=== PATIENT | female | born 1985 | race Caucasian/White ===

== ENCOUNTER → 2020-07-05 10:31 | Outpatient (CLI) | payer OTHER, SELFPAY ==
--- NOTE | 2020-07-05 10:33 | DI.US.S_ITS ---
PROCEDURE: US OB >= 14 WEEKS FETUS INDICATIONS: ANATOMY OUTSIDE/PRIOR DATING DATA: Last menstrual period (LMP): Unknown. LMP-based estimated date of delivery (LAURA): Not applicable . First dating scan (date and location): July 05, 2020 . Estimated date of delivery (LAURA) from first dating scan: November 26, 2020 . TECHNIQUE: Real-time scanning was performed of the fetus, with image documentation and biometric measurements. Endovaginal scanning: Not performed COMPARISON: None. FINDINGS: General: A single living intrauterine gestation is present. Presentation: Vertex. Placenta: Placental position is posterior , without previa. Amniotic fluid index: 14.4 cm, normal range is 5-24 cm. heart rate: 152 beats per minute. Maternal cervical canal: 3.0 cm long. Normal lower limit is 2.5 cm. biometrics: Biparietal diameter: 4.7 cm, correlating with 20 weeks and 1 day Head circumference: 16.8 cm, correlating with 19 weeks and 3 days Abdominal circumference: 13.6 cm, correlating with 19 weeks and 0 days Femur length: 2.9 cm, correlating with 19 weeks and 0 days Estimated gestational age from initial scan: not applicable. Composite gestational age from present scan: 19 weeks and 3 days Estimated weight and percentile: 274 g Measurement variability for biometric dating: +/- 7 days from 14 weeks to 15 weeks 6 days gestation, +/- 10 days from 16 weeks to 21 weeks 6 days gestation, +/- 2 weeks from 22 weeks to 27 weeks 6 days gestation, +/- 3 weeks for 28 weeks gestation or later. weight reference: 4500 g or EFW >90/95% is considered macrosomia or large for gestational age. EFW <10% is small for gestational age. EFW 5% or less is considered intra-uterine growth restriction. Anatomic survey: Neuro: Ventricles are non-dilated at less than 10 mm. Cisterna magna is normal at 3-11 mm. Cerebellum is normal in size and morphology. Nuchal skin fold: Normal at less than 6 mm between 14-21 weeks gestational age. Face: Nose and lips, facial profile are normal. Spine: The sacral spine tip is not well visualized. Remainder of the visualized spine is unremarkable. Heart: 4-chambered heart is present, with normal ventricular outflow tracts. Diaphragm: Diaphragm is intact. Stomach: Left-sided stomach is present. Kidneys: No hydronephrosis. Normal is less than 5 mm in 2nd trimester, less than 7 mm in 3rd trimester. Cord: 3-vessel cord. There is possible marginal cord insertion with the cord insertion site visualized approximately 1.7 cm from the placental edge. Bladder: Normal in size. Extremities: All 4 extremities identified. IMPRESSION: 1. Single living intrauterine gestation with an estimated sonographic gestational age of approximately 19 weeks and 3 days with estimated weight measuring approximately 274 g. Estimated date of delivery is approximately November 26, 2020. 2. Limited visualization of the distal tip of the sacrum otherwise unremarkable anatomic screening survey. 3. There is probable marginal cord insertion. 4. Short interval follow-up recommended to re-evaluate distal sacrum and to confirm probable marginal cord insertion. Dictated by: Sina Porter M.D. on 07/05/2020 at 16:35 Approved by: Sina Porter M.D. on 07/05/2020 at 16:52
== END ==
PROVIDERS: Referring Provider Obstetrics & Gynecology; Visit Provider Obstetrics & Gynecology
DX: Z34.82 Encounter for supervision of other normal pregnancy, second trimester (principal); Z3A.19 19 weeks gestation of pregnancy
CPT/HCPCS: 76811

== ENCOUNTER → 2020-07-16 10:46 | Outpatient (CLI) | payer OTHER, SELFPAY ==
--- NOTE | 2020-07-16 10:47 | DI.US.S_ITS ---
PROCEDURE: US OB FOLLOW UP INDICATIONS: RE-EVALUATE ANATOMY OUTSIDE/PRIOR DATING DATA: First dating scan (date and location): 07/05/2020 Estimated date of delivery (LAURA) from first dating scan: 11/26/2020 . TECHNIQUE: Real-time scanning was performed of the fetus, with image documentation and biometric measurements. Endovaginal scanning: No COMPARISON: [facility], , OB >= 14 WEEKS FETUS, 07/05/2020, 11:18. FINDINGS: General: A single living intrauterine gestation is present. Presentation: Breech. Placenta: Placental position is posterior , without previa. Amniotic fluid index: Subjectively normal. heart rate: 143 beats per minute. Maternal cervical canal: 4.8 cm long. Normal lower limit is 2.5 cm. Estimated gestational age from initial scan: 21 weeks Composite gestational age from present scan: N/a Normal appearance of the kidneys and spine. Marginal cord insertion with the placental cord insertion site 1.3 cm from the placental margin. IMPRESSION: 1. Single living IUP redemonstrated. 2. Normal appearance of the kidneys and spine. 3. Marginal placental cord insertion site. Dictated by: Keanu Mao [facility] Interpreted: Mallory Pitts MD on 07/16/2020 at 14:04 Approved by: Mallory Pitts M.D. on 07/16/2020 at 15:05
== END ==
PROVIDERS: Referring Provider Obstetrics & Gynecology; Visit Provider Obstetrics & Gynecology
DX: Z36.2 Encounter for other antenatal screening follow-up (principal); Z3A.20 20 weeks gestation of pregnancy
CPT/HCPCS: 76816

== ENCOUNTER → 2020-08-20 07:44 | Outpatient (CLI) | payer OTHER, SELFPAY ==
[2020-08-20 10:25] LABS: Hematocrit 35.7 % (36-46); Hemoglobin 12.2 g/dL (12.0-16.0)
[2020-08-20 10:39] LABS: GTT (PREG) 1 Hour PP 50gm Dose 104 mg/dL (76-139)
== END ==
PROVIDERS: Referring Provider Obstetrics & Gynecology; Visit Provider Obstetrics & Gynecology
DX: Z34.82 Encounter for supervision of other normal pregnancy, second trimester (principal); Z3A.26 26 weeks gestation of pregnancy
CPT/HCPCS: 36415; 82950; 85014; 85018

== ENCOUNTER → 2020-10-22 14:55 | Outpatient (CLI) | payer OTHER, SELFPAY ==
[2020-10-23 13:01] LABS: Strep Grp B PCR NEG for Grp B Strep
== END ==
PROVIDERS: Visit Provider Obstetrics & Gynecology
DX: Z34.83 Encounter for supervision of other normal pregnancy, third trimester (principal); Z3A.35 35 weeks gestation of pregnancy
CPT/HCPCS: 87653

== ENCOUNTER 2020-11-08 16:25 | Inpatient (IN) | payer OTHER, SELFPAY ==
--- NOTE | 2020-11-08 16:51 | P.HPOB_ITS ---
OB HPI Date/Time Date of admission: 11/08/20 Date Patient Seen: 11/08/20 Time Patient Seen: 16:52 History of Present Condition Chief complaint: observation of labor : 4 Para: 1 Estimated Date of Delivery: 11/21/20 Estimated Gestational Age (weeks): 38 Narrative: Tisha Palacios is a 35 year old @38+1 with a history of prior CS, presenting with painful contractions q3-4 since this AM. The patient reports that the contractions are accompanied by a lower abdominal sharp, ripping sensation. She denies LOF, vaginal bleeding, or decreased movement, denies GI upset or PIH complaints, and is otherwise feeling well. Her has been uncomplicated, and she transferred care from [place] at 16 weeks. 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 Indications Operative indications ( section): previous uterine surgery History of Present care: none Dating criteria: LMP confirmed by 1st trimester US Ultrasounds: normal mid trimester US Obstetrical complications: none Medical complications: none Preadmission Labs Blood type: AB (+) positive -: Antibody screen: negative, GBS status: negative, HBsAG: negative, HIV: negative, HSV 1: negative and RPR/VDLR: negative -: Chlamydia screen: not detected and Gonorrhea screen: not detected -: Rubella: immune and Varicella: immune PAP: Normal Cell-free DNA: negative, male Urine: no growth 1 hr GTT: 104 Prior (ies) History: G1: 07/23/03, 8 week IAB, [place] G2: 07/04/18, 6-7 weeks SAB, [place] G3: 05/19/19, 40+6, 8#7, M, CS Evaluation Evaluation Baseline heart rate: 130 Variability: Moderate (11-25) monitor accelerations: Present Monitor Decelerations: Late (periodic) Contraction Frequency (minutes): 4 Category of Tracing: Reactive Status: Category ll PFSH Medical History Abnormal Pap smear of cervix (~2004) AMA (advanced maternal age) multigravida 35+ Dislocation of joint of right upper extremity H/O being hospitalized (~2007) HPV (human papilloma virus) anogenital infection (~2004) Hypothyroid (~2009) Insulin resistance (~2002) Right arm fracture UTI (urinary tract infection) Surgical History History of primary section (~05/19/19) Family History Mother Hypertension Hyperlipidemia Migraine Father Insulin resistance Kidney stones Grandmother Emphysema lung Schizophrenia Grandfather Emphysema lung Chain smoker Hypertension Grandmother Insulin resistance Obese Grandfather Alcoholic Pneumonia Family/Other Schizophrenia Family/Other Obese Brother Sarcoidosis Family/Other Seizure Social History marital status: household members: spouse and children lives independently: Yes pets and animals: No education level: college (BA in [employer] and [employer] ) occupational status: unemployed (Will be working again soon) current occupational exposures/hazards: No Previous occupational history: [employer] and [employer]; Fast Food Shift Supervisor jina/sikh: [employer] special jina needs: No Smoking Status: Never smoker second hand exposure: No alcohol intake: former (pre- : social use) substance use type: does not use and marijuana (Quit : some College age use) Meds Home Medications and Allergies Home Medications Medication Instructions Recorded Confirmed Type ascorbic acid (vitamin C) 1,000 mg 500 mg PO DAILY 06/06/20 07/31/20 History tablet prenat.vits,eric,xzj-yfyi-bhekh 1 tab PO DAILY 06/06/20 07/31/20 History Allergies Allergy/AdvReac Type Severity Reaction Status Date / Time Penicillins Allergy Intermediate Rash Verified 06/06/20 10:38 Review of Systems Constitutional Constitutional: Reports system reviewed and no additional complaints, except as documented Cardiovascular Cardiovascular: Reports system reviewed and no additional complaints, except as documented Respiratory Respiratory: Reports system reviewed and no additional complaints, except as documented Gastrointestinal Gastrointestinal: Reports system reviewed and no additional complaints, except as documented Genitourinary Genitourinary: Reports system reviewed and no additional complaints, except as documented Neurologic Neurologic: Reports system reviewed and no additional complaints, except as documented Hematologic/Lymphatic Hematologic/Lymphatic: Reports system reviewed and no additional complaints, except as documented Exam Vital Signs (past 8 hours): 114/68, HR 72 Const General: cooperative, healthy appearing and comfortable Resp Effort & Inspection: normal respiratory effort Auscultation: clear to auscultation bilaterally Cardio Rate: regular rate Rhythm: regular rhythm GI Palpation: soft and No tender Extrem General: normal to inspection Assessment and Plan Assessment and Plan Assessment and Plan narrative: This patient is a 35yo P1 with a history of prior CS, presenting at 38+1 with painful contractions q2-4 throughout the day. Tracing overall reassuring, but has had periodic late decelerations. No tenderness over old incision, but given term gestation and regular painful contractions with cat 2 EFM, patient is for repeat section. CBC, T&S, and covid test pending. Patient reports mild PCN allergy with rash, for Ancef. - Admit per usual CS protocol - Last ate 6 hrs ago
[2020-11-08 17:07] LABS: Add Manual Diff / Slide Review NO; Basophils Absolute Auto 100 /uL (0-100); Basophils Percent Auto 0.6 % (0-2); Eosinophils Absolute Auto 100 /uL (0-450); Eosinophils Percent Auto 0.6 % (2-4); Hematocrit 38.2 % (36-46); Hemoglobin 13.1 g/dL (12.0-16.0); Lymphocytes Absolute Auto 2500 /uL (1100-4500); Lymphocytes Percent Auto 16.4 % (25-40); Mean Corpuscular HGB Conc 34.3 % (30-36); Mean Corpuscular Hemoglobin 31.8 PG (26-34); Mean Corpuscular Volume 92.9 fL (80-100); Monocytes Absolute Auto 1100 /uL (0-900); Monocytes Percent Auto 7.5 % (3-14); Neutrophils Absolute Auto 11400 /uL (1500-7000); Neutrophils Percent Auto 74.9 % (50-75); Platelet Count 277 X10^3/uL (150-400); Red Blood Cell Count 4.11 X10^6/uL (4.0-5.2); Red Cell Distribution Width 12.7 % (11.6-14.8); White Blood Cell Count 15.2 X10^3/uL (4.5-11.0)
[2020-11-08] MEDS: CITRIC ACID/SODIUM CITRATE 15 ML SOLUTION 30 ML PO (17:10)
--- NOTE | 2020-11-08 17:28 | PM.PREOP ---
Pre-operative Note COVID-19 COVID-19 status: Negative Result date/Date tested (Pos, Neg/Pending): 11/08/20 Interval Note History & Physical reviewed/Exam performed by Physician: Yes Changes to H&P: No
[2020-11-08 17:35] LABS: COVID19 - ADMIT (NP swab/PCR) Negative (Negative)
[2020-11-08] MEDS: LACTATED RINGERS 1,000 ML 100 ML IV ×3 (17:36→21:14)
[2020-11-08] MEDS: ACETAMINOPHEN 325 MG TABLET 975 MG PO (17:36)
--- NOTE | 2020-11-08 18:09 | SUR.OPER ---
Supine on Padded OR bed, head on pillow, safety belt at thigh, arms secured on padded arm boards at <90 degrees abduction. Bump under right buttock. Legs uncrossed with pillow under knees, gel pad to heels, tape over blanket to lower legs.
--- NOTE | 2020-11-08 18:11 | SUR.OPER ---
FHT's 160.
[2020-11-08] MEDS: CEFAZOLIN 1 GM VIAL 2 GM IV (18:12)
--- NOTE | 2020-11-08 18:19 | SUR.OPER ---
TOB live male @ 181. Placenta and cord blood x 2 to OB with OB RN
[2020-11-08 19:19] VITALS: BP 120/68; PULSE 55; RESP 14; TEMP 36.6; O2SAT 100
[2020-11-08 19:24] VITALS: BP 119/62; PULSE 62; RESP 14; O2SAT 100
--- NOTE | 2020-11-08 19:26 | P.OP_ITS ---
Operative Date/Time/Diagnoses Date of procedure: 11/08/20 Time of procedure: 19:26 Pre-op diagnosis: prior CS, labor Post-op diagnosis: same Procedure & Clinicians Procedure: repeat section Same procedure as scheduled: Yes Indications: prior section, contraction Surgeon: Laura East Can Reforming Machine Operator: Charlotte Molina Reason for Can Reforming Machine Operator: Assistance with retraction, delivery, visualization Anesthesia Type: Spinal Operative Notes Findings: male in cephalic presentation, apgars 8+9, weight 5#11 Closure Type: primary Specimen(s): cord blood Intraoperative meds administered: Ketorolac and Pitocin Applied: Catheter Estimated Blood Loss (mL): 750 Procedure in detail: EBL: 750ccs Fluids: 2L LR UOP: 900ccs clear yellow urine Findings: Male infant in cephalic presentation, Apgars 8+9, weight 5#11, normal uterus, tubes, ovaries. Thin, quite developed lower uterine segment. Moderate amount of scar tissue throughout. Procedures: The patient was taken to the operating room where spinal anesthesia was placed and found to be adequate. She was prepped and draped in the normal sterile fashion in the dorsal supine position with a leftward tilt. A Pfannenst iel skin incision was made with a scalpel and carried through to the underlying layer of fascia. The fascia was incised in the midline and the incision extended laterally with Farmer scissors. The superior aspect of this incision was grasped with Zoya clamps, elevated, and the underlying rectus muscles dissected off bluntly and with the curved Farmer scissors. Attention was then turned to the inferior aspect of this incision which, in a similar fashion, was grasped, tented up with the Zoya clamps, and the rectus muscles dissected off bluntly and with the curved Farmer scissors. The rectus muscles were then in the midline, and the peritoneum identified, tented up, and entered sharply with Metzenbaum scissors. The peritoneal incision was extended superiorly and inferiorly with good visualization of the bladder. The bladder blade was inserted and the vesicouterine peritoneum identified, grasped with pickups, and entered sharply with the Metzenbaum scissors. This incision was extended laterally, and the bladder flap created digitally. The bladder blade was then reinserted and the lower uterine segment incised in transverse fashion with the scalpel. The uterine incision was bluntly extended laterally. The bladder blade was removed, and the infant's head delivered atraumatically. After 30 seconds of delayed cord clamping, the cord was clamped and cut. The nose and mouth were suctioned as needed with a bulb syringe, and the was handed off to awaiting pediatricians. The placenta was then removed spontaneously, and the uterus was exteriorized and cleared of all clots and debris. The uterine incision was repaired with 1-0 chromic in a running, locked fashion ans a 2nd layer of the same suture was used to obtain excellent hemostasis. The uterus was returned to the abdomen, and the gutters were cleared of all clots and debris. The bladder flap was closed with 2-0 Vicryl in a running fashion, the peritoneum was closed with 3-0 Vicryl, and the fascia reapproximated with 0 Vicryl in a running fashion. The subcutaneous layer was placed with 3 0 Vicryl in an interrupted fashion and the skin was closed with 4-0 biosyn in a running fashion. The patient tolerated the procedure well. sponge lap and needle counts were correct x2. 2 g of Ancef were given at commencement of the case. The patient was taken to the recovery room in stable condition. Complications: none Baby 1: Gender: Male Presentation: vertex Position: Left Occiput Anterior Placental Delivery Description: Manual Removal Cord Vessel Description: 3 Vessels score (1 min): 8 score (5 min): 8 weight: 5 lb 11 oz Post-operative Condition: stable Disposition: PACU Aftercare: routine postop
[2020-11-08 19:29] VITALS: BP 120/69; PULSE 60; RESP 14; O2SAT 100
[2020-11-08 19:33] VITALS: BP 110/64; PULSE 68; RESP 20; TEMP 36.3; O2SAT 99
[2020-11-08 19:50] VITALS: BP 112/72; PULSE 61; RESP 18; O2SAT 98
[2020-11-09] MEDS: KETOROLAC 30 MG/ML VIAL IV ×3 (01:39→13:59)
[2020-11-09 06:32] LABS: Add Manual Diff / Slide Review NO; Basophils Absolute Auto 0 /uL (0-100); Basophils Percent Auto 0.3 % (0-2); Eosinophils Absolute Auto 100 /uL (0-450); Eosinophils Percent Auto 0.9 % (2-4); Hematocrit 32.8 % (36-46); Hemoglobin 11.1 g/dL (12.0-16.0); Lymphocytes Absolute Auto 3000 /uL (1100-4500); Lymphocytes Percent Auto 20.1 % (25-40); Mean Corpuscular HGB Conc 33.8 % (30-36); Mean Corpuscular Hemoglobin 31.5 PG (26-34); Monocytes Absolute Auto 1500 /uL (0-900); Monocytes Percent Auto 9.9 % (3-14); Neutrophils Absolute Auto 10300 /uL (1500-7000); Neutrophils Percent Auto 68.8 % (50-75); Platelet Count 189 X10^3/uL (150-400); Red Blood Cell Count 3.53 X10^6/uL (4.0-5.2); Red Cell Distribution Width 12.7 % (11.6-14.8); White Blood Cell Count 15.1 X10^3/uL (4.5-11.0)
--- NOTE | 2020-11-09 09:27 | P.PNOB_ITS ---
Subjective - OB Subjective Patient comments: no complaints, pain well controlled, tolerating diet and flatus present baby status: doing well and nursing well [place] feeding status: exclusively breast feeding Narrative: This patient is recovering well on postoperative day 1. Patient has ambulated, is passing flatus, mild to moderate lochia, good pain control on p.o. medications. Tolerating p.o., chest pain or trouble breathing. Voiding trial this morning. Baby is well. Date Patient Seen: 11/09/20 Time Patient Seen: 08:45 Exam Vital Signs (past 8 hours): 111/54, HR 78 Oxygen Delivery Method Room Air Const General: cooperative, healthy appearing and comfortable Resp Effort & Inspection: normal respiratory effort Auscultation: clear to auscultation bilaterally Cardio Rate: regular rate Rhythm: regular rhythm GI Inspection: incision (c/d/i, covered by aquacell) Palpation: soft and No tender Extrem General: normal to inspection Objective Labs Result Diagrams: 11/09/20 06:16 Labs: Laboratory Results - last 24 hr 11/08/20 11/08/20 11/08/20 16:35 16:50 16:50 WBC 15.2 H RBC 4.11 Hgb 13.1 Hct 38.2 MCV 92.9 MCH 31.8 MCHC 34.3 RDW 12.7 Plt Count 277 Neut % (Auto) 74.9 Lymph % (Auto) 16.4 L [place] % (Auto) 7.5 Eos % (Auto) 0.6 L Baso % (Auto) 0.6 Neut # (Auto) 48028 H Lymph # (Auto) 2500 [place] # (Auto) 1100 H Eos # (Auto) 100 Baso # (Auto) 100 SARS-CoV-2 (PCR) Negative Blood Type AB Positive Antibody Screen Negative 11/09/20 06:16 WBC 15.1 H RBC 3.53 L Hgb 11.1 L Hct 32.8 L MCV 93.0 MCH 31.5 MCHC 33.8 RDW 12.7 Plt Count 189 Neut % (Auto) 68.8 Lymph % (Auto) 20.1 L [place] % (Auto) 9.9 Eos % (Auto) 0.9 L Baso % (Auto) 0.3 Neut # (Auto) 72495 H Lymph # (Auto) 3000 [place] # (Auto) 1500 H Eos # (Auto) 100 Baso # (Auto) 0 SARS-CoV-2 (PCR) Blood Type Antibody Screen Assessment & Plan Assessment and Plan (1) delivery delivered: Status: Acute Plan day: 1 plan OB: routine postop care Comments: Patient is recovering well on postop day 1, meeting postoperative goals appropriately. For voiding trial this morning. Patient and partner desired discharge later today, have family to stay within [place]. Precautions were discussed, discussed re-evaluating this afternoon or evening and discussing with pediatrics. Routine postoperative care. Time Spent With Patient Time: Total time spent is greater than 50% in coordination of care (as documented) at patient's floor/unit and/or counseling patient: Time with patient: 15-24 minutes
[2020-11-09] MEDS: ACETAMINOPHEN 325 MG TABLET 650 MG PO (14:00)
--- NOTE | 2020-11-09 18:53 | PM.OBDS.1 ---
Discharge Providers Provider Date of admission: 11/08/20 16:25 Discharge Date: 11/09/20 Consults: 11/08/20 20:12 Consult to Embedded Software Programmer Routine Comment: Discharge provider: Laura East MD Summary Hospital Course Date Patient Seen: 11/10/20 Time Patient Seen: 19:00 Diagnoses: Repeat section, labor 38 weeks with prior section Hospital Course: This patient was admitted in early labor with painful contractions every 3-4 minutes and a category 2 tracing at 38 weeks. She was taken for repeat section expeditiously, was delivered of a healthy baby boy, Apgars 8 and 9, weight 5 lb 11 oz. her postoperative recovery was uncomplicated, and she was discharged on the evening of postop day 1. Peripartum Data Delivery Method: Section complications: none 1: Gender: Male Disposition of : home Discharge Diagnosis (1) delivery delivered: Status: Acute Status at Discharge Cognitive/behavioral status at discharge: oriented Functional status at discharge: independent ambulation Overall status at discharge: patient is progressing back to baseline Time Spent with Patient Time attestation: Total time spent providing and/or coordinating discharge services: Time spent: Less than 30 minutes Objective Labs Result Diagrams: 11/09/20 06:16 Labs: Laboratory Results - last 24 hr 11/08/20 11/09/20 16:50 06:16 WBC 15.1 H RBC 3.53 L Hgb 11.1 L Hct 32.8 L MCV 93.0 MCH 31.5 MCHC 33.8 RDW 12.7 Plt Count 189 Neut % (Auto) 68.8 Lymph % (Auto) 20.1 L [place] % (Auto) 9.9 Eos % (Auto) 0.9 L Baso % (Auto) 0.3 Neut # (Auto) 67414 H Lymph # (Auto) 3000 [place] # (Auto) 1500 H Eos # (Auto) 100 Baso # (Auto) 0 Blood Type AB Positive Antibody Screen Negative Exam Vital Signs (past 8 hours): Stable, see day of discharge progress note Oxygen Delivery Method Room Air Discharge Plan Discharge Plan Patient Disposition: Home Discharge orders & Medications Prescriptions: New oxycodone 5 mg tablet 5 mg PO Q6H PRN (Reason: pain) Qty: 14 RF: 0 Continued prenat.vits,eric,prh-bjrv-bwosr Tablet 1 tab PO DAILY RF: 0 ascorbic acid (vitamin C) 1,000 mg tablet 500 mg PO DAILY RF: 0 Follow up/Referrals: Laura East MD [Physician] - 1 Week Diet/Activity/Treatments Diet: Regular Activity: Nothing in the vagina for 6 weeks. Avoid lifting more than 10 lbs for 6 weeks. If you have increasing bleeding, fevers, chills, pain, nausea, vomiting, or any other symptoms, call or come to the emergency room. Skin/Wound/Dressing Care Report to your healthcare provider any signs of infection, such as:: chills, fever, night sweats, increased pain, unusual drainage and unusual redness Visit Report/Discharge Packet Instructions: DI for Stand Alone Forms: Discharge: Care
== END 2020-11-09 21:30 | disposition home or self-care (01) | DRG 788 ==
PROVIDERS: Admitting Provider Obstetrics & Gynecology; Referring Provider Obstetrics & Gynecology; Visit Provider Obstetrics & Gynecology
PROC: 10D00Z1 Extraction of Products of Conception, Low, Open Approach (ICD-10-PCS; CPT 59514; principal; 2020-11-08 17:15)
DX: O34.219 Maternal care for unspecified type scar from previous cesarean delivery (principal); Z3A.38 38 weeks gestation of pregnancy; Z37.0 Single live birth; Z20.822 Contact with and (suspected) exposure to COVID-19
CPT/HCPCS: 36415; 59050; 59510; 59514; 85025; 86850; 86900; 86901; 87635; C9803; G0379; J0690; J1885; J2274; J2590